=== PATIENT | male | born 1965 | race Caucasian/White ===

== ENCOUNTER 2025-07-05 09:23 | Inpatient (IN) | payer SELFPAY ==
--- OUTSIDE RECORDS SUMMARY | 2025-07-05 09:25 | XMS REPORT | Continuity of Care Document ---
Author Name Unknown Address [address] [facility] [address] [place] [address] Organization [facility] Address [address] [facility] [address] [place] [address] Care Team Providers Care Sales Center Associate Name Role Phone Pedro_Parmjit Attending Clinician Unavailable ISELA_Brooke Attending Clinician Unavailable Kamla Hall Attending Clinician [phone] ESTELLA Attending Clinician Unavailable Salma Barba Attending Clinician [phone] Keisha Admitting Clinician Unavailable ISELA_Brooke Admitting Clinician Unavailable ESTELLA Admitting Clinician Unavailable Payers Payer Name Policy Type Policy Number Effective Date Expirati on Date Source [facility] - LIMITED BENEFIT PLAN (PPO) [id number] [place] [id number] 2021 00:00:00 2022 00:00:00 [place]BS[place] - PREFERRED CARE BLUE (PPO) [id number] 2015 00:00:00 Problems Condition Name Condition Details Condition Category Status Onset Date Resolution Date Last Treatment Date Treating Clinician Comments Source Heavy drinker Heavy Drinker Problem Active 04-28 00:00: 00 [facility] Tobacco dependence caused by chewing tobacco Tobacco Dependence Caused by Chewing Tobacco Problem Active 04-28 00:00: 00 [facility] Pruritic rash Pruritic Rash Problem Active 2021-09 2-16 00:00: 00 [facility] Hyponatrem ia Hyponatrem ia Problem Active 2021-09 0- 00:00: 00 [facility] Liver enzymes outside reference range Liver Enzymes outside Reference Range Problem Active 2021-09 0- 00:00: 00 [facility] Discolorat ion of skin Discolorat ion of Skin Problem Active 06-28 00:00: 00 [facility] Liver enzymes level above reference range Liver Enzymes Level above Reference Range Problem Active 06-28 00:00: 00 [facility] Vitamin D deficiency Vitamin D Deficiency Problem Active 01-23 00:00: 00 [facility] Mixed hyperlipid emia Mixed Hyperlipid emia Problem Active 01-30 00:00: 00 [facility] Long-term drug therapy Long-term Drug Therapy Problem Active 01-30 00:00: 00 [facility] Hypertensi ve disorder Hypertensi ve Disorder Problem Active 12-20 00:00: 00 [facility] Allergies, Adverse Reactions, Alerts Allergy Name Allergy Type Status Severity Reaction(s) Onset Date Inactive Date Treating Clinician Comments Source Lisinopr il Allergy to substanc e Active Severe Angioedema [facility] Social History Smoking Status Start Date Stop Date Source Never Smoker [facility] Medications Ordered Medication Name Filled Medication Name Start Date Stop Date Current Medication? Ordering Clinician Indication Dosage Frequency Signature (SIG) Comments Components Source metoprolol tartrate 100 mg tablet Take 1 tablet twice a day by oral route for 90 days. Needs OV before next refill metoprolol tartrate 100 mg tablet Take 1 tablet twice a day by oral route for 90 days. Needs OV before next refill No 1 BID metoprolol tartrate 100 mg tablet Take 1 tablet twice a day by oral route for 90 days. Needs OV before next refill [facility] Immunizations Ordered Immunization Name Filled Immunization Name Date Status Comments Source COVID-19 (SARS-COV-2) vaccine, unspecified COVID-19 (SARS-COV-2) vaccine, unspecified Unknown Completed [facility] Vital Signs Vital Name Observation Time Observation Value Comments S ource Height 2024-04-28 00:00:00 66 [in_i] [facility] Body Weight 2024-04-28 00:00:00 2483.2 [oz_av] [facility] BMI (Body Mass Index) 2024-04-28 00:00:00 25 [facility]m2 [facility] BP Systolic 2024-04-28 00:00:00 142 mm[Hg] [facility] BP Diastolic 2024-04-28 00:00:00 94 mm[Hg] [facility] BP Systolic 2024-04-01 00:00:00 110 mm[Hg] [facility] Height 2024-04-01 00:00:00 66 [in_i] [facility] Body Weight 2024-04-01 00:00:00 2556.8 [oz_av] [facility] BP Diastolic 2024-04-01 00:00:00 80 mm[Hg] [facility] BMI (Body Mass Index) 2024-04-01 00:00:00 25.8 kg/m2 [facility] BP Diastolic 2023-08-05 00:00:00 100 mm[Hg] [facility] Height 2023-08-05 00:00:00 66 [in_i] [facility] BP Systolic 2023-08-05 00:00:00 155 mm[Hg] [facility] BMI (Body Mass Index) 2023-08-05 00:00:00 26 kg/m2 [facility] Body Weight 2023-08-05 00:00:00 2576 [oz_av] [facility] BP Diastolic 2022-06-28 00:00:00 95 mm[Hg] [facility] Height 2022-06-28 00:00:00 66 [in_i] [facility] BMI (Body Mass Index) 2022-06-28 00:00:00 26 kg/m2 [facility] BP Systolic 2022-06-28 00:00:00 145 mm[Hg] [facility] Body Weight 2022-06-28 00:00:00 2579.2 [oz_av] [facility] BP Diastolic 2021-11-22 00:00:00 90 mm[Hg[facility] 2021-11-22 00:00:00 66 [in_i] [facility] BMI (Body Mass Index) 2021-11-22 00:00:00 27.5 kg/m2 [facility] BP Systolic 2021-11-22 00:00:00 144 mm[Hg] [facility] Body Weight 2021-11-22 00:00:00 2723.2 [oz_av] [facility] BP Diastolic 2020-12-29 00:00:00 161 mm[Hg] [facility] Height 2020-12-29 00:00:00 66 [in_i] [facility] BMI (Body Mass Index) 2020-12-29 00:00:00 26 kg/m2 [facility] BP Systolic 2020-12-29 00:00:00 181 mm[Hg] [facility] Body Weight 2020-12-29 00:00:00 2579.2 [oz_av] [facility] Procedures Procedure Date / Time Performed Performing Clinicia n Source electrocardiogram, routine ECG, 12 leads min 2024-04-28 00:00:00 [facility] US, liver 2022-07-05 00:00:00 [facility] Unlisted Px Hands/fingers [facility] Encounters Start Date/Time End Date/Time Encounter Type Admission Type Attending Clinicians Care Facility Care Department Encounter ID Source 2024-04-28 00:00:00 2024-04-28 00:00:00 Joselin Parnell APRN, MSN, [facility]-: [address] [place] [address], [address] [address] , Ph[address] [facility] 0 [facility] 2024-04-01 00:00:00 2024-04-01 00:00:00 Joselin Parnell APRN, MSN, [facility]-BC: [address] [place] [address], [address] [place] [address] , Ph[address] [facility] [id number] [facility] 2023-08-05 00:00:00 2023-08-05 00:00:00 Joselin Parnell APRN, MSN, [facility]: [address] [facility], [address], [place] [address] , [address] [facility] [id number] [facility] 2022-07-05 00:00:00 2022-07-05 00:00:00 Joselin Parnell APRN, MSN, [facility]: [address] [facility], [address] [facility], [place] [address] , Ph[address] [facility] [id number] [facility] 2022-06-28 00:00:00 2022-06-28 00:00:00 Joselin Parnell APRN, MSN, [facility]: [address] [facility], [address], [place] [address] , [address] 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 [facility] [id number] [facility] 2021-10-05 00:00:00 2021-10-05 00:00:00 Kamla Hall APRN-FREELANCE PHOTOGRAPHER-C: [address] [place] [address], [address] [address] , Ph[address] [facility] [id number] [facility] 2021-10-05 00:00:00 2021-10-05 00:00:00 Outpatient Kamla Hall [facility] [id number] 2020-12-29 00:00:00 2020-12-29 00:00:00 Outpatient YaritzaSalma castle [facility] [id number] 2020-12-29 00:00:00 2020-12-29 00:00:00 Salma Archuleta Reyes k, [facility]-: [address] [place] [address], [address] [address] , Ph. [facility] [id number] [facility] Results Test Description Test Time Test Comments Results Result Co mments Source [facility] - Serum or [id number] 00:00:00* Test Item Value Reference Range Interpretation Comme nts Glucose [Mass/volume] in Serum or Plasma (test code = 2345-7) 87 mg/dL 70-99 Urea nitrogen [Mass/volume] in Serum or Plasma (test code = 3094-0) 4 mg/dL 6-24 L Creatinine [Mass/volume] in Serum or Plasma (test code = 2160-0) 0.76 mg/dL 0.76-1.27 eGFR (test code = eGFR) 104 mL/min/1.73 >59 Urea nitrogen/Creatinine [Mass Ratio] in Serum or Plasma (test code = 3097-3) 5 9-20 L Sodium [Moles/volume] in Serum or Plasma (test code = 2951-2) 128 mmol/L 134-144 L Potassium [Moles/volume] in Serum or Plasma (test code = 2823-3) 4.1 mmol/L 3.5-5.2 Chloride [Moles/volume] in Serum or Plasma (test code = 2074-0) 88 mmol/L 96-106 L Carbon dioxide, total [Moles/volume] in Serum or Plasma (test code = 2027-) 23 mmol/L 20-29 Calcium [Mass/volume] in Serum or Plasma (test code = 23832-5) 9.4 mg/dL 8.7-10.2 Protein [Mass/volume] in Serum or Plasma (test code = 2885-2) 7.4 g/dL 6.0-8.5 Albumin [Mass/volume] in Serum or Plasma (test code = 175-7) 4.4 g/dL 3.8-4.9 Globulin [Mass/volume] in Serum by calculation (test code = 10727-1) 3.0 g/dL 1.5-4.5 Albumin/Globulin [Mass Ratio ] in Serum or Plasma (test code = 1759-0) 1.5 1.2-2.2 Bilirubin.total [Mass/volume ] in Serum or Plasma (test code = 1974-) 0.6 mg/dL 0.0-1.2 Alkaline phosphatase [Enzymatic activity/volume] in Serum or Plasma (test code = 6768-6) 70 IU/L 44-121 Aspartate aminotransferase [Enzymatic activity/volume] in Serum or Plasma (test code = 192-8) 90 IU/L 0-40 H Alanine aminotransferase [Enzymatic activity/volume] in Serum or Plasma (test code = 1742-6) 82 IU/L 0-44 H [facility] 1996 panel - Serum or [id number] 00:00:00* Test Item Value Reference Range Interpretation Comme nts Cholesterol [Mass/volume] in Serum or Plasma (test code = 2093-3) 160 mg/dL 100-199 Triglyceride [Mass/volume] i n Serum or Plasma (test code = 2571-8) 60 mg/dL 0-149 Cholesterol in HDL [Mass/vol ume] in Serum or Plasma (test code = 2084-9) 73 mg/dL >39 Cholesterol in VLDL [Mass/vo lume] in Serum or Plasma by calculation (test code = 44512-5) 12 mg/dL 5-40 Cholesterol in LDL [Mass/vol ume] in Serum or Plasma by calculation (test code = 16437-2) 75 mg/dL 0-99 Laboratory comment [Text] in Report Narrative (test code = 34829-8) 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 Cholesterol in LDL/Cholester ol in HDL [Mass Ratio] in Serum or Plasma (test code = 60451-3) 1.0 ratio 0.0-3.6 [facility]/Hemoglobin.total in Blood 2022-06-29 00:00:00* Test Item Value Reference Range Interpretation Comme nts Hemoglobin A1c/Hemoglobin.to oseas in Blood (test code = 4548-4) 5.2 % 4.8-5.6 [facility] [Mass/volume] in Serum or Plasma 2022-06-29 00:00:00* Test Item Value Reference Range Interpretation Comme nts Testosterone [Mass/volume] i n Serum or Plasma (test code = 2986-8) 301 NG/dL 264-916 [facility] Center[facility]yroxine (T4) free [Mass/volume] in Serum or [id number] 00:00:00* Test Item Value Reference Range Interpretation Comme nts Thyroxine (T4) free [Mass/vo lume] in Serum or Plasma (test code = 3024-7) 1.27 NG/dL 0.82-1.77 [facility] CenterThyrotropin [Units/volume] in Serum or Plasma by Detection limit <= 0.005 mIU/[id number] 00:00:00* Test Item Value Reference Range Interpretation Comme nts Thyrotropin [Units/volume] i n Serum or Plasma by Detection limit <= 0.005 mIU/L (test code = 10241-6) 0.876 uIU/mL 0.450-4.500 [facility] [id number] D3+25-Hydroxyvitamin D2 [Mass/volume] in Serum or [id number] 00:00:00* Test Item Value Reference Range Interpretation Comme nts 25-Hydroxyvitamin D3+25-Hydroxyvitamin D2 [Mass/volume] in Serum or Plasma (test code = 92461-5) 44.1 NG/mL 30.0-100.0 [facility] strep group A, [id number] 14:47:00 * Test Item Value Reference Range Interpretation Comme nts Strep (test code = Strep) positive [facility] flu (A+B)2021-10-05 14:29:00* Test Item Value Reference Range Interpretation Comme nts FLU A (test code = FLU A) negative FLU B (test code = FLU B) negative [facility] Center[facility]ARS-CoV-2 (COVID-19) Ag [Presence] in Respiratory specimen by Rapid [id number] 14:29:00* Test Item Value Reference Range Interpretation Comme nts SARS CoV 2 (test code = SARS CoV 2) positive [facility]
[2025-07-05] MEDS ORDERED: ONDANSETRON 4 MG/2 ML VIAL ONE (09:29)
--- NOTE | 2025-07-05 10:03 | RAD REPORT ---
EXAM: CT brain without contrast HISTORY: Fall with head injury COMPARISON: None TECHNIQUE: Multiple contiguous axial images were obtained and a CT of the brain without contrast.. Sagittal and coronal reconstruction performed. Automated exposure control, adjustment of the mA and/or kV according to patient size, and/or iterative reconstruction. Unless otherwise specified, incidental f indings do not require dedicated imaging follow-up FINDINGS: Posterior scalp hematoma An intracranial bleed is not seen Ventricles are normal caliber No extra-axial fluid collection noted No significant hypodensity within the brain No fluid within the visualized sinuses or mastoids noted. IMPRESSION: No acute intracranial abnormality noted. If the patient continues to have symptoms to suggest an acute intracranial abnormality then MRI of th e brain would be recommended.
[2025-07-05 10:12] LABS: Absolute Lymphocytes (CBC) 1.0 K/uL (0.7-4.9); Hematocrit 43.5 % (39.6-49.0); Hemoglobin 14.9 g/dL (13.6-17.9); MCH 33.7 pg (27.0-35.0); MCHC 34.2 g/dL (32.0-36.0); MCV 98.7 fL (80-100); MPV 8.5 fL (7.6-11.3); Nucleated RBC Absolute Count 0.0 (0-0); Nucleated Red Blood Cells % 0.0 % (0-0); RBC Red Blood Cell Count 4.41 M/uL (4.33-5.43); White Blood Count 6.80 thou/uL (4.3-10.9)
[2025-07-05 10:23] LABS: PT Prothrombin Time 12.2 SECONDS (10-13.0); PTT, Activated Partial Thromb 29.6 SECONDS (27.2-37.4); Protime INR 1.08
[2025-07-05 10:44] LABS: ALT/SGPT 50.0 U/L (16-61); AST/SGOT 46.0 U/L (15-37); Albumin 3.4 g/dL (3.4-5.0); Albumin/Globulin Ratio 0.7 (1.1-1.8); Alkaline Phosphatase 86.0 U/L (45-117); Anion Gap 14.8 mEq/L (5.0-15.0); BUN Blood Urea Nitrogen 6.0 mg/dL (7-18); Bilirubin Indirect, Calculated 0.7 mg/dL (0.2-0.8); Globulin 4.8 g/dL (2.3-3.5); Glucose Level 140.0 mg/dL (74-106); Magnesium 2.0 mg/dL (1.6-2.4); Potassium 3.8 mEq/L (3.5-5.1); Troponin High Sensitivity 4.7 pg/mL (<58.9)
[2025-07-05] MEDS ORDERED: LABETALOL 20 MG/4ML SYRINGE IV ONE (11:17)
--- NOTE | 2025-07-05 11:40 | RAD REPORT ---
Procedure: Chest Single View HISTORY: Code stroke COMPARISON: none FINDINGS: The lungs appear clear of acute infiltrate. No significant pleural effusion noted. The heart is normal size. IMPRESSION: No acute abnormality is displayed.
--- NOTE | 2025-07-05 11:54 | ER ---
Nurse's Notes [facility] Name: Eduardo Woodard Age: 60 yrs Sex: Male : 1965 Arrival Date: 07/05/2025 Time: 09:23 Bed 6 Private MD: Diagnosis: Syncope, postconcussive syndrome, vomiting, ataxia, alcoholism Presentation: 07/05 09:37 Chief complaint: Patient states: Severe dizziness since 1400 yesterday, passed out and jl7 hit back of head, dizziness continues and pt report N/V. Note Code stroke called, ERD cancelled code stroke, staff notified. 09:37 Acuity: MARITO 2 mb9 09:37 Coronavirus screen: Vaccine status: Patient reports being unvaccinated. Ebola Screen: mb9 No symptoms or risks identified at this time. Initial Sepsis Screen: Does the patient meet any 2 criteria? No. Patient's initial sepsis screen is negative. Does the patient have a suspected source of infection? No. Patient's initial sepsis screen is negative. Risk Assessment: Do you want to hurt yourself or someone else? Patient reports no desire to harm self or others. Onset of symptoms was July 05, 2025. 09:37 Method Of Arrival: Wheelchair mb9 Historical: - Allergies: 11:46 No Known Allergies; mb9 - Home Meds: 09:48 Metoprolol Tartrate Oral [Active]; mb9 - PMHx: 09:48 Hypertensive disorder; mb9 - PSHx: 11:46 None; mb9 - Immunization history:: Adult Immunizations up to date. - Infectious Disease History:: Denies. - Social history:: Smoking status: Patient/guardian denies using tobacco. Screenin:47 [facility] ED Fall Risk Assessment (Adult) History of falling in the last 3 months, mb9 including since admission Yes- single mechanical fall (1 pt) Confusion or Disorientation No (0 pts) Intoxicated or Sedated No (0 pts) Impaired Gait Yes (1 pt) Mobility Assist Device Used No (0 pt) Altered Elimination No (0 pt) Score/Fall Risk Level 3 or more points = High Risk Oriented to surroundings, Maintained a safe environment, Educated pt \T\ family on fall prevention, incl call for assistance when getting out of bed, Assessed \T\ reinforced patient's understanding of fall precautions. Abuse screen: Denies threats or abuse. Nutritional screening: No deficits noted. Tuberculosis screening: No symptoms or risk factors identified. 12:35 Clinical [place] Withdrawal Assessment for Alcohol, revised (CIWA-Ar): mb9 Nausea/Vomitin - No nausea or vomiting Headache: 0 - Not present Paroxysmal Sweats: 0 - No sweats visible Anxiety: 0 - No anxiety, at ease Agitation: 0 - Normal actiivty Tremor: 4 - Moderate when client's hands extended Auditory Disturbances: 0 - Not present Visual Disturbances: 0 - Not present Tactile Disturbances: 0 - None Orientation and Clouding of Sensorium: 0 - Oriented and can do serial additions Total Score: < 10 Very mild withdrawal. 12:45 [place] Swallow Protocol Exclusion Criteria: Exclusion Criteria Result: Proceed Brief jl7 Cognitive Screen What is your name? Normal, Where are you right now? Normal, What year is it? Normal. Oral Mechanism Examination Facial Symmetry: Normal, Motion: Normal, Lip Closure: Normal, Oral Mechanism Result: Normal. 3 oz Water Swallow Challenge: Pt able to drink all water without stopping, coughing, choking or throat clearing: Yes Result: PASS. Assessment: 09:42 Reassessment: pt taken to CT on stretcher accompanied by nurse. mb9 09:45 General: Appears uncomfortable, Behavior is cooperative, anxious. Pain: Complains of mb9 pain in scalp Pain does not radiate. Pain currently is 10 out of 10 on a pain scale. Quality of pain is described as aching, Pain began suddenly, Is continuous. Neuro: [place] Agitation-Sedation Scale (RASS): 0 - Alert and Calm Level of Consciousness is awake, alert, obeys commands, Oriented to person, place, time, situation, Appropriate for age Entertainment Usher are equal bilaterally Full function Gait is unsteady, Speech is normal, Facial symmetry appears normal, Pupils are PERRLA, Intact Reports dizziness. Cardiovascular: Patient's skin is warm and dry. Respiratory: Airway is patent Respiratory effort is even, unlabored, Respiratory pattern is regular, symmetrical. GI: Reports nausea, vomiting. : No signs and/or symptoms were reported regarding the genitourinary system. EENT: No signs and/or symptoms were reported regarding the EENT system. Derm: laceration to posterior head. No active bleeding noted. Musculoskeletal: Range of motion: intact in all extremities. Injury Description: Laceration sustained to scalp. 11:14 Reassessment: Patient appears in no apparent distress at this time. Patient and/or mb9 family updated on plan of care and expected duration. Pain level reassessed. Patient is alert, oriented x 3, equal unlabored respirations, skin warm/dry/pink. Patient states feeling better. Patient states symptoms have improved. 12:05 Reassessment: This nurse went to D/C pt. Pt has tremors and unsteady on feet. Pt unable mb9 to ambulate. ERP notified and at bedside. Pt reports he is a heavy drinker and hasn't had alcohol in 2 days and could be explaining what is ging on. Vital Signs: 10:00 BP 185 / 107; Pulse 70; Resp 18; Pulse Ox 98% on R/A; jp5 10:02 BP 185 / 107; Pulse 71; Resp 18; Pulse Ox 100% ; Weight 74.84 kg; Height 5 ft. 8 in. ; mb9 Pain 8/10; 11:18 BP 181 / 115; Pulse 80; Resp 18; Pulse Ox 100% on R/A; mb9 11:46 BP 148 / 99; Pulse 89; Resp 16; Pulse Ox 100% on R/A; mb9 12:42 BP 142 / 109; Pulse 85; Resp 18; Pulse Ox 100% on R/A; mb9 10:02 Body Mass Index 25.09 (74.84 kg, 172.72 cm) mb9 10:02 Pain Scale: Adult mb9 ED Course: 09:24 Patient arrived in ED. mr 09:24 Arely Ramos MD is Attending Physician. sp3 09:35 Laura Yanez RN is Primary Nurse. mb9 09:39 Inserted saline lock: 18 gauge in right antecubital area, using aseptic technique. jp5 Blood collected. Flushed with 10 mL NS. 09:[address] via stretcher. jp5 09:41 Basic Metabolic Panel Sent. jp5 09:41 CBC with Diff Sent. jp5 09:41 Hepatic Function Sent. jp5 09:41 Magnesium Sent. jp5 09:41 Protime (+inr) Sent. jp5 09:41 Ptt, Activated Sent. jp5 09:41 Troponin High Sensitivity Sent. jp5 09:49 Placed in gown. Bed in low position. Call light in reach. Side rails up X 1. Provided mb9 Education on: press call light if needing anything. Client placed on continuous cardiac and pulse oximetry monitoring. NIBP monitoring applied. research geologist on. 09:50 Triage completed. mb9 09:52 Radiology exam delayed due to patient in CT. md2 09:54 CT Head Brain wo Cont In Process Unspecified. EDMS 10:03 No provider procedures requiring assistance completed. mb9 10:03 Arm band placed on. mb9 11:30 Chest Single View XRAY In Process Unspecified. EDMS 11:52 Anton Parr MD is Referral Physician. sp3 11:55 IV discontinued, intact, bleeding controlled, No redness/swelling at site. Pressure mb9 dressing applied. 12:21 Mathieu Saab is Hospitalizing Provider. sp3 12:52 Inserted saline lock: 20 gauge in right forearm, using aseptic technique. Flushed with mb9 10 mL NS. Administered Medications: 09:40 Drug: Ondansetron IVP 4 mg IVP once; over 2 minutes Route: IVP; Site: right antecubital;jp5 11:14 Follow up: Response: No adverse reaction mb9 11:21 Drug: Labetalol IV 20 mg IV at calculated rate once over 2 mins Route: IV; Rate: mb9 calculated rate; Infused Over: 2 mins; Site: right antecubital; 11:55 Follow up: Response: No adverse reaction; IV Status: Completed infusion mb9 12:52 Drug: Thiamine IV 100 mg IV at calculated rate once Route: IV; Rate: calculated rate; mb9 Site: right forearm; 14:49 Follow up: Response: No adverse reaction; IV Status: Completed infusion mb9 12:53 Drug: foLIC Acid PO 1 mg PO once Route: PO; mb9 14:49 Follow up: Response: No adverse reaction mb9 Medication: 10:03 VIS not applicable for this client. mb9 Outcome: 11:54 Discharge ordered by . sp3 11:57 Discharged to home via wheelchair, with family, mb9 11:57 Condition: stable 11:57 Discharge instructions given to patient, family, Instructed on discharge instructions, follow up and referral plans. Demonstrated understanding of instructions, follow-up care, medications, Prescriptions given X 1, 12:23 Decision to Hospitalize by Provider. sp3 14:48 Patient left the ED. mb9 Signatures: Dispatcher MedHo KIN Feliciano, [facility], Reg Reg mr Sunny, Srini, RN RN jl7 Arely Ramos MD MD sp3 Julianne García md2 Laura Yanez, RN RN mb9 Rossi Parnell RN RN jp5
--- NOTE | 2025-07-05 11:54 | EDPHYS ---
Physician Documentation [facility] Name: Eduardo Woodard Age: 60 yrs Sex: Male : 1965 Arrival Date: 07/05/2025 Time: 09:23 Bed 6 Private MD: ED Physician Arely Ramos HPI: 07/05 09:46 This 60 yrs old Male presents to ER via Unassigned with complaints of Fall Injury, sp3 Passed Out Prior To Arrival. 09:47 60-year-old male with history of hypertension presents via personal vehicle sent from 3 his primary nurse practitioner's office for chief complaint headache, syncope and vomiting. Patient and family states that he has had several episodes of syncope over the last few weeks with 1 yesterday where he had a full blackout while standing and felt hitting the back of his head. Subsequent to that he has had vomiting off and on since yesterday. Patient also complains of headache. He denies any neck pain, other pain on the body including chest, back, abdomen, extremities. He also denies any diarrhea, fever, medical prodrome prior to the syncope (he said it happens randomly), or similar symptoms in the past. No travel history or known sick contacts. ROS otherwise negative.. Historical: - Allergies: 11:46 No Known Allergies; mb9 - Home Meds: 09:48 Metoprolol Tartrate Oral [Active]; mb9 - PMHx: 09:48 Hypertensive disorder; mb9 - PSHx: 11:46 None; mb9 - Immunization history:: Adult Immunizations up to date. - Infectious Disease History:: Denies. - Social history:: Smoking status: Patient/guardian denies using tobacco. ROS: 09:48 Constitutional: Negative for fever, chills, and weight loss, Eyes: Negative for injury, sp3 pain, redness, and discharge, ENT: Negative for injury, pain, and discharge, Neck: Negative for injury, pain, and swelling, Cardiovascular: Negative for chest pain, palpitations, and edema, Respiratory: Negative for shortness of breath, cough, wheezing, and pleuritic chest pain, Back: Negative for injury and pain, MS/Extremity: Negative for injury and deformity, Skin: Negative for injury, rash, and discoloration, Psych: Negative for depression, anxiety, suicide ideation, homicidal ideation, and hallucinations, Allergy/Immunology: Negative for hives, rash, and allergies, Endocrine: Negative for neck swelling, polydipsia, polyuria, polyphagia, and marked weight changes, Hematologic/Lymphatic: Negative for swollen nodes, abnormal bleeding, and unusual bruising, 09:48 All other systems are negative, Exam: 09:49 Constitutional: This is a well developed, well nourished patient who is awake, alert, sp3 and in no acute distress. Eyes: Pupils equal round and reactive to light, extra-ocular motions intact. Lids and lashes normal. Conjunctiva and sclera are non-icteric and not injected. Cornea within normal limits. Periorbital areas with no swelling, redness, or edema. ENT: Nares patent. No nasal discharge, no septal abnormalities noted. External auditory canals are clear. Oropharynx with no redness, swelling, or masses, exudates, or evidence of obstruction, uvula midline. Mucous membranes moist. Neck: Trachea midline, no thyromegaly or masses palpated, and no cervical lymphadenopathy. Supple, full range of motion without nuchal rigidity, or vertebral point tenderness. No Meningismus. Chest/axilla: Normal chest wall appearance and motion. Nontender with no deformity. No lesions are appreciated. Cardiovascular: Regular rate and rhythm with a normal S1 and S2. No gallops, murmurs, or rubs. Normal PMI, no JVD. No pulse deficits. Respiratory: Lungs have equal breath sounds bilaterally, clear to auscultation and percussion. No rales, rhonchi or wheezes noted. No increased work of breathing, no retractions or nasal flaring. Back: No spinal tenderness. No costovertebral tenderness. Full range of motion. Skin: Warm, dry with normal turgor. Normal color with no rashes, no lesions, and no evidence of cellulitis. MS/ Extremity: Pulses equal, no cyanosis. Neurovascular intact. Full, normal range of motion. Psych: Awake, alert, with orientation to person, place and time. Behavior, mood, and affect are within normal limits. 09:49 Head/face: Posterior occiput hematoma noted without significant laceration. 09:49 Abdomen/GI: Active emesis but soft abdomen, 09:49 Neuro: Neurologically no focal deficits. Patient is vertiginous with motion triggering worsening symptoms., 10:27 ECG was reviewed by the Attending Physician. EKG demonstrates normal sinus rhythm at 70 sp3 bpm with extended QTc at 495, normal QRS, normal axis nonspecific diffuse ST/T changes without evidence of acute ischemia. Vital Signs: 10:00 BP 185 / 107; Pulse 70; Resp 18; Pulse Ox 98% on R/A; jp5 10:02 BP 185 / 107; Pulse 71; Resp 18; Pulse Ox 100% ; Weight 74.84 kg; Height 5 ft. 8 in. ; mb9 Pain 8/10; 11:18 BP 181 / 115; Pulse 80; Resp 18; Pulse Ox 100% on R/A; mb9 11:46 BP 148 / 99; Pulse 89; Resp 16; Pulse Ox 100% on R/A; mb9 12:42 BP 142 / 109; Pulse 85; Resp 18; Pulse Ox 100% on R/A; mb9 10:02 Body Mass Index 25.09 (74.84 kg, 172.72 cm) mb9 10:02 Pain Scale: Adult mb9 MDM: 09:31 Medical Screening Exam initiated sp3 09:50 Data reviewed: vital signs, nurses notes, old medical records, lab test result(s), EKG, sp3 radiologic studies. ED course: 60-year-old male with headache, vomiting and vertigo subsequent to syncope and fall. Differential diagnosis is broad and includes intracranial hemorrhage secondary to the fall, other primary intracranial process, TIA/CVA, cardiac arrhythmia, acute coronary syndrome, dehydration electrolyte disturbance,, among others. Workup will be broad and include CT scan of the head, EKG, chest x-ray, general labs and supportive care. Consider meclizine for vertigo as a diagnosis of exclusion and treatment process. Patient will likely be admitted to the hospital for observation at minimum pending workup completion.. 11:51 ED course: Patient much improved and completely back to baseline. All symptoms sp3 resolved. Blood pressure was still high which resolved after labetalol 1 dose. Patient did miss his morning blood pressure medications. Full workup otherwise negative as well. I have advised patient to follow-up with cardiology and return here if further symptoms return. I have also advised him to walk with a walker or cane and preferably with a family member at side. Family and patient acknowledged and state that they will proceed as discussed.. 12:05 ED course: Upon standing up patient's symptoms returned and he was very unsteady on his sp3 feet. At this point we will go ahead and admit him and have cardiology see him here as well as PT OT as needed. Consider neurology as well.. 12:17 ED course: Upon further history from family, patient endorses alcoholism. Consider sp3 Korsakoff and/or other process and/or withdrawal process as part of the symptoms. Have advised inpatient team on this moore piece of clinical data.. 07/05 09:32 Order name: Basic Metabolic Panel; Complete Time: 10:47 sp3 07/05 09:32 Order name: CBC with Diff; Complete Time: 10:47 sp3 07/05 09:32 Order name: Hepatic Function; Complete Time: 10:47 sp3 07/05 09:32 Order name: Magnesium; Complete Time: 10:47 sp3 07/05 09:32 Order name: Protime (+inr); Complete Time: 10:47 sp3 07/05 09:32 Order name: Ptt, Activated; Complete Time: 10:47 sp3 07/05 09:32 Order name: Troponin High Sensitivity; Complete Time: 10:47 sp3 07/05 12:44 Order name: CBC with Automated Diff EDMS 07/05 12:44 Order name: CBC with Automated Diff EDMS 07/05 12:44 Order name: CBC with Automated Diff EDMS 07/05 12:44 Order name: CBC with Automated Diff EDMS 07/05 12:44 Order name: CBC with Automated Diff EDMS 07/05 12:44 Order name: Comprehensive Metabolic Panel EDMS 07/05 12:44 Order name: Comprehensive Metabolic Panel EDMS 07/05 12:44 Order name: Comprehensive Metabolic Panel EDMS 07/05 12:44 Order name: Comprehensive Metabolic Panel EDMS 07/05 12:44 Order name: Comprehensive Metabolic Panel EDMS 07/05 12:44 Order name: Magnesium EDMS 07/05 12:44 Order name: Magnesium EDMS 07/05 12:44 Order name: Magnesium EDMS 07/05 12:44 Order name: Magnesium EDMS 07/05 12:44 Order name: Magnesium EDMS 07/05 12:44 Order name: Phosphorus EDMS 07/05 12:44 Order name: Phosphorus EDMS 07/05 12:44 Order name: Phosphorus EDMS 07/05 12:44 Order name: Phosphorus EDMS 07/05 12:44 Order name: Phosphorus EDMS 07/05 12:44 Order name: T4 Free EDMS 07/05 12:44 Order name: T4 Free EDMS 07/05 12:44 Order name: Thyroid Stimulating Hormone EDMS 07/05 12:44 Order name: Thyroid Stimulating Hormone EDMS 07/05 12:44 Order name: Troponin High Sensitivity EDMS 07/05 12:44 Order name: Troponin High Sensitivity EDMS 07/05 12:44 Order name: Troponin High Sensitivity EDMS 07/05 09:32 Order name: CT Head Brain wo Cont; Complete Time: 10:47 sp3 07/05 09:32 Order name: Chest Single View XRAY; Complete Time: 11:42 sp3 07/05 12:44 Order name: Echo with Doppler EDMS 07/05 12:44 Order name: Brain W/Wo Cont EDMS 07/05 09:32 Order name: Cardiac monitoring; Complete Time: 10:02 sp3 07/05 09:32 Order name: EKG - Nurse/Tech; Complete Time: 10:02 sp3 07/05 09:32 Order name: IV Saline Lock; Complete Time: 09:41 sp3 07/05 09:32 Order name: Labs collected and sent; Complete Time: 09:41 sp3 07/05 09:32 Order name: NPO; Complete Time: 09:48 sp3 07/05 09:32 Order name: O2 Per Protocol; Complete Time: 09:48 sp3 07/05 09:32 Order name: O2 Sat Monitoring; Complete Time: 09:48 sp3 Administered Medications: 09:40 Drug: Ondansetron IVP 4 mg IVP once; over 2 minutes Route: IVP; Site: right antecubital;jp5 11:14 Follow up: Response: No adverse reaction mb9 11:21 Drug: Labetalol IV 20 mg IV at calculated rate once over 2 mins Route: IV; Rate: mb9 calculated rate; Infused Over: 2 mins; Site: right antecubital; 11:55 Follow up: Response: No adverse reaction; IV Status: Completed infusion mb9 12:52 Drug: Thiamine IV 100 mg IV at calculated rate once Route: IV; Rate: calculated rate; mb9 Site: right forearm; 14:49 Follow up: Response: No adverse reaction; IV Status: Completed infusion mb9 12:53 Drug: foLIC Acid PO 1 mg PO once Route: PO; mb9 14:49 Follow up: Response: No adverse reaction mb9 Disposition Summary: 07/05/25 12:23 Hospitalization Ordered Notes: Hospitalization Status: Inpatient Admission sp3 Provider: Mathieu Saab sp3 Location: Telemetry/MedSurg (Inpatient)(07/05/25 12:23) sp3 Condition: Stable(07/05/25 12:23) sp3 Problem: new sp3 Symptoms: have worsened sp3 Bed/Room Type: Standard sp3 Room Assignment: 425(07/05/25 13:50) bd Diagnosis - Syncope, postconcussive syndrome, vomiting, ataxia, alcoholism sp3 Forms: - Medication Reconciliation Form sp3 - SBAR form sp3 - Leadership Thank You Letter sp3 Signatures: Dispatcher [employer] EDMS Di Marroquin Lee, NEUROLOGICAL SURGEON-C NEUROLOGICAL SURGEON-Cla1 Arely Ramos MD MD sp3 Laura Yanez RN RN mb9 Rossi Parnell RN RN jp5 Corrections: (The following items were deleted from the chart) 10:02 09:32 Orthostatics ordered. sp3 mb9 11:54 11:54 Syncope Near sp3 sp3 12:05 11:54 Home sp3 sp3 12:05 11:54 Stable sp3 sp3 12:05 11:54 Postconcussive syndrome, vomiting sp3 sp3 13:50 12:23 sp3 bd
[2025-07-05] MEDS ORDERED: LORazepam 2 MG/ML VIAL IV PRN (12:38)
[2025-07-05] MEDS ORDERED: ACETAMINOPHEN 325 MG TABLET PO PRN (12:38)
[2025-07-05] MEDS ORDERED: ONDANSETRON 4 MG/2 ML VIAL IV PRN (12:38)
[2025-07-05] MEDS ORDERED: THIAMINE 200 MG/2 ML INJ ONE (12:43)
[2025-07-05] MEDS ORDERED: FOLIC ACID 1 MG TABLET ONE (12:44)
--- NOTE | 2025-07-05 15:39 | P.HP ---
Certification for Inpatient Patient admitted to: Inpatient With expected LOS: >2 Midnights Patient will require the following post-hospital care: None Practitioner: I am a practitioner with admitting privileges, knowledge of patient current condition, hospital course, and medical plan of care. Services: Services provided to patient in accordance with Admission requirements found in Title 42 Section 412.3 of the Code of Federal Regulations Patient History Date of Service: 07/05/25 Reason for admission: Ataxia History of Present Illness: 60-year-old male with history of hypertension, neuropathy presents the emergency department with chief complaint of nausea/vomiting, unsteady gait. He had a syncopal episode yesterday while he was outside and fell hitting the back of his head. Since he fell and hit his head he has been having a very unsteady gait and persistent vomiting. Patient was evaluated in the emergency department CT head without contrast was negative for any acute findings his labs are significant for sodium of 131 chloride 95 AST 46. Patient reports 1 other syncopal episode a few weeks ago. He denies any chest pain, shortness of breath or other symptoms prior to syncopal episodes. Both episodes happened while standing. Patient does admit to being a heavy drinker, he drinks anywhere from 12-24 beers daily. Patient with unsteady gait, unable to ambulate without assistance will be admitted for further evaluation and management. Allergies codeine Adverse Reaction (Verified 07/05/25 15:06) Hives/Rash lisinopril Adverse Reaction (Verified 07/05/25 15:06) Hives/Rash Home Medications: Metoprolol Tartrate 100 mg PO BID 6AM 6PM 07/05/25 - Past Medical/Surgical History -: Hypertension -: Alcohol use disorder -: Neuropathy - Social History Alcohol use: Yes CD- Drugs: No Caffeine use: Yes Place of Residence: Home Review of Systems 10-point ROS is otherwise unremarkable Neurological: Incoordination, Other (Unsteady gait) Physical Examination - Vital Signs Blood Pressure: 142/109 Pulse: 85 Respirations: 18 - Physical Exam General: Alert, In no apparent distress, Oriented x3 HEENT: Atraumatic, PERRLA, EOMI Neck: Supple, 2+ carotid pulse no bruit, No LAD Respiratory: Clear to auscultation bilaterally, Normal air movement Cardiovascular: Regular rate/rhythm, Normal S1 S2 Gastrointestinal: Normal bowel sounds, No tenderness Musculoskeletal: No tenderness Integumentary: No rashes Neurological: Normal speech, Normal strength at 5/5 x4 extr, Normal affect, Abnormal gait - Studies Laboratory Data (last 24 hrs) 07/05/25 07/05/25 07/05/25 09:37 09:37 09:37 WBC 6.80 Hgb 14.9 Hct 43.5 Plt Count 129 L PT 12.2 INR 1.08 APTT 29.6 Sodium 131 L Potassium 3.8 BUN 6 L Creatinine 1.04 Glucose 140 H Magnesium 2.0 Total Bilirubin 1.0 AST 46 H ALT 50 Alkaline Phosphatase 86 Assessment and Plan - Plan Assessment: Ataxia Postconcussive syndrome Syncope Mild hyponatremia Hypertension Alcohol use disorder Plan: Ataxia Postconcussive syndrome PT consultation MRI brain with/without CT head was negative for acute findings Syncope Trend troponins, monitor on telemetry Echocardiogram ordered Cardiology consulted Mild hyponatremia Gentle IV fluids Hypertension Continue home medication Alcohol use disorder Drinks 12-24 beers daily Counseled on need for cessation Monitor for alcohol withdrawals As needed benzos DVT PPX: Lovenox Code status: Full code Discharge Plan: Home Plan to discharge in: 48 Hours - Advance Directives Does patient have a Living Will: No Does patient have a Durable POA for Healthcare: No - Code Status/Comfort Care Code Status Assessed: Yes (Full code) Critical Care: No Time Spent Managing Pts Care (In Minutes): 70
--- NOTE | 2025-07-05 15:59 | RAD REPORT ---
EXAMINATION: Brain W/Wo Cont CLINICAL INDICATION: Male, 60 years old. ataxia TECHNIQUE: Multiplanar multisequence MR images of the brain were obtained with and without intravenou s contrast. Unless otherwise specified, incidental findings do not require dedicated imaging follow-up. [id number]. COMPARISON: Head CT 07/05/2025 FINDINGS: INTRACRANIAL: Punctate cortical infarct at the right parietal region. See image 60, series 5. No sign ificant mass effect or midline shift.No hydrocephalus. Mild chronic small vessel ischemic changes.Mild cerebral atrophy. No abnormal enhancement. VASCULATURE: Normal signal voids in the larger intracranial arteries and dural venous sinuses. SINUSES: The paranasal sinuses are predominantly clear.No mastoid effusions. BONE: The marrow signal pattern is within normal limits. IMPRESSION: Single punctate right parietal region cortical infarct. Mild chronic small vessel ischemic changes. N o abnormal enhancement.
[2025-07-05] MEDS: FLU (Fluarix) 25-26 (6MOS UP)/PF 45 MCG/0.5 ML Syringe IM ONE (16:45)
[2025-07-05] MEDS: ATORVASTATIN 40 MG TAB PO SCH (21:49)
[2025-07-06 05:49] LABS: Absolute Lymphocytes (CBC) 1.2 K/uL (0.7-4.9); Hematocrit 39.9 % (39.6-49.0); Hemoglobin 13.7 g/dL (13.6-17.9); MCH 33.5 pg (27.0-35.0); MCHC 34.3 g/dL (32.0-36.0); MCV 97.5 fL (80-100); MPV 7.9 fL (7.6-11.3); Nucleated RBC Absolute Count 0.0 (0-0); Nucleated Red Blood Cells % 0.0 % (0-0); RBC Red Blood Cell Count 4.09 M/uL (4.33-5.43); White Blood Count 6.20 thou/uL (4.3-10.9)
[2025-07-06 06:14] LABS: ALT/SGPT 37.0 U/L (16-61); AST/SGOT 26.0 U/L (15-37); Albumin 3.1 g/dL (3.4-5.0); Albumin/Globulin Ratio 0.8 (1.1-1.8); Alkaline Phosphatase 70.0 U/L (45-117); Anion Gap 11.1 mEq/L (5.0-15.0); BUN Blood Urea Nitrogen 6.0 mg/dL (7-18); Globulin 4.1 g/dL (2.3-3.5); Glucose Level 117.0 mg/dL (74-106); Magnesium 1.7 mg/dL (1.6-2.4); Potassium 3.1 mEq/L (3.5-5.1); Troponin High Sensitivity 6.0 pg/mL (<58.9)
[2025-07-06 06:15] LABS: Thyroid Stimulating Hormone 2.02 uIU/mL (0.358-3.740)
[2025-07-06] MEDS: ASPIRIN EC 81 MG TAB PO SCH (08:58)
[2025-07-06] MEDS: THIAMINE HCL 100 MG TABLET PO SCH (08:58)
[2025-07-06] MEDS: ENOXAPARIN 40 MG/0.4 ML SQ SCH (08:58)
[2025-07-06] MEDS: CLOPIDOGREL 75 MG TABLET PO SCH (08:58)
[2025-07-06] MEDS: POTASSIUM CL SA 10 MEQ TAB PO ONE (08:58)
[2025-07-06] MEDS: FOLIC ACID 1 MG TABLET PO SCH (08:58)
--- NOTE | 2025-07-06 11:51 | P.CNS ---
Date of Consult: 07/06/25 Chief Complaint: Ataxia History of Present Illness: Patiet with PMH of HTN, presented with ground level fall, report syncope, can not recall any symptoms prior to passing out, except he was looking up then passed out, denies chest pain, no palpitations, no breathing problems. Allergies codeine Adverse Reaction (Verified 07/05/25 15:06) Hives/Rash lisinopril Adverse Reaction (Verified 07/05/25 15:06) Hives/Rash Home medications list reviewed: Yes Home Medications: Metoprolol Tartrate 100 mg PO BID 6AM 6PM 07/05/25 - Past Medical/Surgical History Diabetic: No -: Hypertension -: Alcohol use disorder -: Neuropathy - Social History Alcohol use: Yes CD- Drugs: No Caffeine use: Yes Place of Residence: Home Review of Systems 10-point ROS is otherwise unremarkable Physical Examination Temp Pulse Resp BP Pulse Ox 98.4 F 96 H 16 137/90 97 07/06/25 08:00 07/06/25 08:00 07/06/25 08:00 07/06/25 08:00 07/06/25 08:00 General: Alert, In no apparent distress HEENT: Atraumatic, PERRLA, Mucous membr. moist/pink, EOMI, Sclerae nonicteric Neck: Supple, 2+ carotid pulse no bruit, No LAD, Without JVD or thyroid abnormality Respiratory: Clear to auscultation bilaterally, Normal air movement Cardiovascular: Regular rate/rhythm, Normal S1 S2 Gastrointestinal: Normal bowel sounds, No tenderness Musculoskeletal: No tenderness Integumentary: No rashes Neurological: Normal gait, Normal speech, Normal tone, Normal affect Lymphatics: No axilla or inguinal lymphadenopathy - Problems (1) HTN (hypertension) Current Visit: Yes Status: Acute Plan: resume Lopressor at 50 mg po BID Continue to monitor (2) Stroke Current Visit: Yes Status: Acute Plan: per neurology team continue ASA and Plavix outpatient follow up with cardiology for possible event monitor (3) Syncope Current Visit: Yes Status: Acute Plan: unclear etiology continue to monitor on tele, it shown sinus rhythm so far troponin negative x3 follow up on echo
--- NOTE | 2025-07-06 12:25 | P.PN ---
Date of Service: 07/06/25 Subjective: feeling better worked with PT today states getting up to bathroom ok loose stool started this morning Physical Exam: Gen: Alert, Oriented, NAD CV: Regular rate and rhythm, no edema Pulm: Nonlabored respirations on room air, clear bilaterally Abdomen: Soft, nontender, nondistended Neuro: Normal strength, normal affect Problem List: Acute punctate right parietal cortical CVA Ataxia Syncope Hyponatremia Hypokalemia Alcohol use disorder Hypertension Acute punctate right parietal cortical CVA Ataxia MRI brain (07/05): single punctate right parietal region cortical infarct. Mild chronic small vessel ischemic changes. asa 81mg, statin, plavix Continue thiamine, folic acid Neuro consult PT eval Syncope Troponins negative x3. Monitor on telemetry Cardiology consulted. recommends outpatient f/u for possible event monitor Echo done pending report Hyponatremia Hypokalemia Monitor and replete electrolytes as needed Alcohol use disorder Significant alcohol use. Drinks 12-24 beers daily Cessation advised. Monitor for alcohol withdrawals LFTs okay PRN ativan Hypertension confirm home meds, restart as appropriate VTE: Lovenox Code: Full Dispo: Home
[2025-07-06 15:40] VITALS: BMI 25.0
--- NOTE | 2025-07-06 16:51 | RAD REPORT ---
EXAMINATION: MRI CERVICAL SPINE WITHOUT CONTRAST CLINICAL INDICATION: Male, 60 years old. r/o cervical spinal stenosis TECHNIQUE: Multiplanar multisequence MR images were obtained of the cervical spine without intravenou s contrast. Unless otherwise specified, incidental findings do not require dedicated imaging follow-up. [id number]. COMPARISON: No prior exam. FINDINGS: ALIGNMENT: Trace anterolisthesis of C4 on C5. Trace retrolisthesis of C5 on C6 and 2 mm of retrolisth esis of C6 on C7. BONE: Mild degenerative endplate edema is present at the C5-6 and C6-7 levels. CORD: The cervical spinal cord is normal in size, contour and signal intensity. BRAIN: The included intracranial structures are grossly normal. The craniocervical junction is normal . SOFT TISSUE: The paraspinal soft tissues are normal. EVALUATION OF THE INDIVIDUAL LEVELS: C2-C3: Uncovertebral joint hypertrophy contributes to at least mild bilateral neural foraminal narrow ing. No central spinal stenosis. C3-C4: Posterior disc osteophyte complex and uncovertebral joint hypertrophy results in likely modera te left and [id number] right neural foraminal narrowing. No significant central spinal stenosis. C4-C5: Posterior disc osteophyte complex and uncovertebral joint hypertrophy results in moderate bila teral neural foraminal narrowing. No significant central spinal stenosis. C5-C6: Posterior disc osteophyte complex and uncovertebral joint hypertrophy results in moderate righ t and [id number] left neural foraminal narrowing. No clinically significant central spinal stenosis. C6-C7: Posterior disc osteophyte complex and uncovertebral joint hypertrophy results in mild central spinal stenosis and moderate bilateral neural foraminal narrowing. C7-T1: Disc is normal in height and signal intensity. No significant spinal canal or neural foraminal stenosis. IMPRESSION: Mild central spinal stenosis at the C6-7 level which is probably not clinically significant. Neural f oraminal narrowing noted bilaterally. No abnormal cord signal.
--- NOTE | 2025-07-06 22:04 | CON ---
Reason For Consultation: Consultation called because of ataxic gait. History Of Present Illness: Mr. Woodard is a 60-year-old patient with hypertension; very heavy alco hol use for over 40 years, 12-24 beers daily for many years and he presented to the emergency room wi th nausea, vomiting, and worsening gait. He did have also had a syncopal episode while outside. He fell hitting the back of his head. He says the fall he has had, had some head pain and worsening hea dache with vomiting. His noticed that he has worsening gait, which is wide-based with a tendenc y to fall, progressive over the [address] scan of the head was negative for acute ischemic hemorr hagic change. A brain MRI done yesterday identified a small punctate acute stroke in the right parie oseas region and mild small vessel ischemic disease. No mention of cerebellar findings, posterior oneyda a findings such as brainstem issues. His clinical examination also showed significant hyperreflexia with crossed adductors and spreading lower extremities and cervical spine was lower. However, cervic al spine, only showed mild cervical canal stenosis, not explaining the patient's hyperreflexia. In a ddition, he has small punctate stroke on 1 side, did not explain his hyperreflexia as well. Past Medical History: As noted above. Allergies: CODEINE, LISINOPRIL. Medications At Home: Metoprolol. Social History: Heavy alcohol use. Denies recent tobacco use. No IV drug use. Family History: Noncontributory. Review of Systems: Unsteady gait with tendency to fall and vertigo with dizziness symptoms since bumping the back of his head and again longstanding heavy alcohol use. Denies alcohol related blackouts or alcoholic seizur es, or delirium tremens symptoms. Physical Examination: Vital Signs: Blood pressure is 153/93, pulse of 102, respiratory rate of 16, temperature 98.4, oxyge n saturation 100% on room air. General: Mr. Woodard is resting in bed. HEENT: He appears normocephalic. Slightly poor dentition. Otherwise, normocephalic, atraumatic. S clerae anicteric. Oropharynx pink and moist. Neck: Supple. Chest: Clear. Heart: Regular. No significant edema, cyanosis, or clubbing. Neurological: He is alert, oriented to person, place, and situation. Follows commands appropriately . Cranial nerves show focal deficits on 2 through 12. Motor examination, he has good str ength in the upper and lower extremities. With his reflexes, he has 4+ in the patellae and 2 at the heels, crossed adductors present, and spread present. Sensations exam, he has a mild stocking-glove loss to light touch and temperature, but he has good position sense in terms of his toes up, down, le ft, right. He is able to accurately pinpoint those. Coordination is mildly ataxic with dysmetria in the upper and lower extremities. Ataxic gait, wide-based. Laboratory Studies: Complete blood count differential is unremarkable. Coagulation panel, INR 1.08. Sodium was low at 130, potassium 3.1, BUN of 6, glucose 117, calcium 9.1. Phosphorus 4.0. AST 26, ALT 37, LDL of 72. TSH 2.02, free T4 of 1.28. Liver function studies are unremarkable despite hist ory of alcohol consumption. Assessment And Plan: Mr. Woodard is a 60-year-old patient with ataxic gait. He has hyperreflexic l ower extremities. He does not have significant cervical canal stenosis. Small punctate stroke in t he right parietal region, that does not explain his ataxic gait. Other consideration should be perha ps findings of central pontine myelinolysis, although the MRI does not necessarily evaluate that, may be MRI with contrast potentially may be helpful. The presence of increased reflexes may also represe nt an upper motor neuron finding, but anatomically it is unclear explanation. He does not have signi ficant loss of nerve function in the lower extremities to explain his gait by a sensory loss. The roscoe yessy may benefit from aggressive physical therapy to help him recover. In addition, he should stop drinking alcohol. He should be on thiamine 100 mg daily, folic acid 1 mg daily, multivitamin daily. He may follow up with his primary care physician for management of his comorbid conditions and patie nt may be discharged again, but outpatient physical therapy may be helpful in improving his balance, coordinati on, and gait. LB/MODL Voice ID: [id number] Report ID: [id number]
[2025-07-07 06:07] LABS: Absolute Lymphocytes (CBC) 0.8 K/uL (0.7-4.9); Hematocrit 36.6 % (39.6-49.0); Hemoglobin 12.9 g/dL (13.6-17.9); MCH 33.9 pg (27.0-35.0); MCHC 35.3 g/dL (32.0-36.0); MCV 96.1 fL (80-100); MPV 7.8 fL (7.6-11.3); Nucleated RBC Absolute Count 0.0 (0-0); Nucleated Red Blood Cells % 0.1 % (0-0); RBC Red Blood Cell Count 3.81 M/uL (4.33-5.43); White Blood Count 4.90 thou/uL (4.3-10.9)
[2025-07-07 06:22] LABS: ALT/SGPT 29.0 U/L (16-61); AST/SGOT 24.0 U/L (15-37); Albumin 2.9 g/dL (3.4-5.0); Albumin/Globulin Ratio 0.7 (1.1-1.8); Alkaline Phosphatase 64.0 U/L (45-117); Anion Gap 7.1 mEq/L (5.0-15.0); BUN Blood Urea Nitrogen 5.0 mg/dL (7-18); Globulin 4.0 g/dL (2.3-3.5); Glucose Level 104.0 mg/dL (74-106); Magnesium 1.6 mg/dL (1.6-2.4); Potassium 3.1 mEq/L (3.5-5.1)
[2025-07-07] MEDS: NA CHLORIDE 0.9% 1,000 ML IV SCH (08:50)
[2025-07-07] MEDS: POTASSIUM CL SA 10 MEQ TAB PO ONE (08:53)
[2025-07-07] MEDS: Magnesium Sulfate 2gm IVPB 2 G/50 ML BAG IV ONE (08:55)
--- NOTE | 2025-07-07 10:28 | P.PN ---
Subjective Date of Service: 07/07/25 Chief Complaint: Ataxia Subjective: No new changes, No C/O voiced, Tolerating diet, Ambulating, Improving Review of Systems 10-point ROS is otherwise unremarkable Physical Examination - Vital Signs Temperature: 98.4 F Blood Pressure: 144/97 Pulse: 93 Respirations: 18 Pulse Ox (%): 95 - Physical Exam General: Alert, In no apparent distress HEENT: Atraumatic, PERRLA, EOMI Neck: Supple, JVD not distended Respiratory: Clear to auscultation bilaterally, Normal air movement Cardiovascular: Regular rate/rhythm, Normal S1 S2 Gastrointestinal: Normal bowel sounds, No tenderness Musculoskeletal: No tenderness Integumentary: No rashes Neurological: Normal speech, Normal tone, Normal affect Lymphatics: No axilla or inguinal lymphadenopathy - Studies Medications List Reviewed: Yes Assessment And Plan - Current Problems (Diagnosis) (1) HTN (hypertension) Current Visit: Yes Status: Acute Plan: resume Lopressor at 50 mg po BID Continue to monitor (2) Stroke Current Visit: Yes Status: Acute Plan: per neurology team continue ASA and Plavix outpatient follow up with cardiology for possible event monitor (3) Syncope Current Visit: Yes Status: Acute Plan: unclear etiology tele shown sinus rhythm so far troponin negative x3 echo is normal patient to follow up with cardiology as outpatient
[2025-07-07] MEDS: METOPROLOL TAR 50 MG TAB PO SCH (12:27)
[2025-07-07 15:10] LABS: Anion Gap 6.8 mEq/L (5.0-15.0); BUN Blood Urea Nitrogen 6.0 mg/dL (7-18); Glucose Level 79.0 mg/dL (74-106); Potassium 3.8 mEq/L (3.5-5.1)
[2025-07-07] MEDS: LOSARTAN POTASSIUM 50 MG TABLET PO ONE (16:36)
[2025-07-08 06:46] LABS: Absolute Lymphocytes (CBC) 0.8 K/uL (0.7-4.9); Hematocrit 37.8 % (39.6-49.0); Hemoglobin 13.3 g/dL (13.6-17.9); MCH 34.2 pg (27.0-35.0); MCHC 35.2 g/dL (32.0-36.0); MCV 97.1 fL (80-100); MPV 8.1 fL (7.6-11.3); Nucleated RBC Absolute Count 0.0 (0-0); Nucleated Red Blood Cells % 0.0 % (0-0); RBC Red Blood Cell Count 3.89 M/uL (4.33-5.43); White Blood Count 5.90 thou/uL (4.3-10.9)
[2025-07-08 07:17] LABS: ALT/SGPT 31.0 U/L (16-61); AST/SGOT 28.0 U/L (15-37); Albumin 2.9 g/dL (3.4-5.0); Albumin/Globulin Ratio 0.7 (1.1-1.8); Alkaline Phosphatase 66.0 U/L (45-117); Anion Gap 9.6 mEq/L (5.0-15.0); BUN Blood Urea Nitrogen 7.0 mg/dL (7-18); Globulin 4.1 g/dL (2.3-3.5); Glucose Level 96.0 mg/dL (74-106); Magnesium 1.8 mg/dL (1.6-2.4); Potassium 3.6 mEq/L (3.5-5.1)
[2025-07-08 07:36] VITALS: O2SAT 98
--- NOTE | 2025-07-08 08:36 | RAD REPORT ---
EXAMINATION: CAROTID DUPLEX ULTRASOUND CLINICAL INDICATION: CVA, r/o stenosis TECHNIQUE: Real-time grayscale, color flow and spectral Doppler sonographic images were obtained of t he extracranial carotid system using a linear transducer. COMPARISON: No prior exam. FINDINGS: RIGHT: Common carotid artery: 62 cm/s Internal carotid artery: 49 cm/s External carotid artery: 55 cm/s Right ICA/CCA ratio: 0.8 Plaque: Mild hard plaque. Vertebral artery Antegrade LEFT: Common carotid artery: 68 cm/s Internal carotid artery: 62 cm/s External carotid artery: 62 cm/s Left ICA/CCA ratio: 0.9 Plaque: Mild hard plaque Vertebral artery Antegrade IMPRESSION: No hemodynamically significant stenosis (greater than 50%) within the extracranial internal carotid a rteries. The degrees of stenosis, if any, are quantified according to the consensus statement of the Society o f Radiologists in Ultrasound (SRUS). Please refer to Toan E, Adam C, Brigette G et al. Carotid Artery Stenosis: Monroe-Scale and Doppler US Diagnosis--Society of Radiologists in Ultrasound Consensus Conference. Radiology. 2003;229(2):340-6.
[2025-07-08] MEDS: LOSARTAN POTASSIUM 50 MG TABLET PO SCH (08:37)
[2025-07-08 08:39] VITALS: BP 143/87
[2025-07-08 08:57] VITALS: TEMP 98.4
--- NOTE | 2025-07-08 09:58 | P.PN ---
Date of Service: 07/07/25 Subjective: feeling better working with PT doesn't feel worse Physical Exam: Gen: Alert, Oriented, NAD CV: Regular rate and rhythm, no edema Pulm: Nonlabored respirations on room air, clear bilaterally Abdomen: Soft, nontender, nondistended Neuro: Normal strength, normal affect Problem List: Acute punctate right parietal cortical CVA Ataxia Syncope Hyponatremia Hypokalemia Alcohol use disorder Hypertension Acute punctate right parietal cortical CVA Ataxia MRI brain (07/05): single punctate right parietal region cortical infarct. Mild chronic small vessel ischemic changes. asa 81mg, statin, plavix Continue thiamine, folic acid Neuro consulted. f/u outpatient. continue PT Syncope Troponins negative x3. Monitor on telemetry Cardiology consulted. recommends outpatient f/u for possible event monitor Echo showed 55-60% EF, grade 1 diastolic dysfunction. Hyponatremia Hypokalemia Monitor and replete electrolytes as needed Alcohol use disorder Significant alcohol use. Drinks 12-24 beers daily Cessation advised. Monitor for alcohol withdrawals LFTs okay PRN ativan Hypertension confirm home meds, restart as appropriate VTE: Lovenox Code: Full Dispo: Home pending improvement of sodium
--- NOTE | 2025-07-08 10:00 | P.DS ---
Admission Date: 07/05/25 Discharge Date: 07/08/25 Disposition: ROUTINE DISCHARGE Discharge Condition: GOOD Reason for Admission: Ataxia Consultations: Neurology - Dr. Ayers Cardiology - Dr. Spivey Brief History of Present Illness: 60yo M, PMH: hypertension, neuropathy Patient presents the emergency department with chief complaint of nausea/vomiting, unsteady gait. He had a syncopal episode yesterday while he was outside and fell hitting the back of his head. Since he fell and hit his head he has been having a very unsteady gait and persistent vomiting. Patient was evaluated in the emergency department CT head without contrast was negative for any acute findings his labs are significant for sodium of 131 chloride 95 AST 46. Patient reports 1 other syncopal episode a few weeks ago. He denies any chest pain, shortness of breath or other symptoms prior to syncopal episodes. Both episodes happened while standing.Patient does admit to being a heavy drinker, he drinks anywhere from 12-24 beers daily. Patient with unsteady gait, unable to ambulate without assistance will be admitted for further evaluation and management. Hospital Course: Problem List: Acute punctate right parietal cortical CVA Ataxia Syncope Hyponatremia, improving Hypokalemia, improved Alcohol use disorder Hypertension Physician discharge instructions: Patient presented to ED after a syncopal episode at home. He reports hitting the back of his head when he fell and since then he has been having ataxic gait associated with persistent nausea/vomiting. Patient was found to have an acute punctate right parietal cortical CVA, confirmed on MRI imaging. MRI of the cervical spine showed mild central spinal stenosis at C6-C7, neural foraminal narrowing noted bilaterally otherwise no acute findings. No significant narrowing that would be expected to cause his symptoms. Carotid ultrasound was normal. Patient was started on aspirin, statin, and plavix in addition to thiamine and folic acid. Echo showed 55-60% EF, grade [address] Ayers recommended patient follow up in the office in the next few weeks for further management. No evidence to warrant further inpatient testing. He worked with physical therapy and had slow improvement. He was noted to be able to ambulate without assistance around the floor on day of discharge. Patient was feeling better, close to his normal self, and was deemed stable for discharge. He reports drinking anywhere from 12-24 beers a day. Recommend cessation of alcohol to reduce risk factors and decrease the chance of rehospitalization. He was noted to have hyponatremia 130 on admission)- lowest at 125, asymptomatic. Suspected to be secondary to excessive water intake. Has long standing history of drinking beer daily and during hospitalization he was drinking several pitchers of water each day. He was advised to limit water intake to 2L/ day. He had some improvement to 127 on day of discharge. Small improvement expected as he had already drank nearly 4L pitchers prior to water restriction the day before. Patient felt back to his baseline. Blood pressure improved. He was requesting discharge home. He did not display any signs of ETOH withdrawal, and plans to continue abstaining from alcohol. Given how well he is doing, the slight improvement in his sodium with water restriction, it is reasonable to discharge home today. He will continue to restrict water intake, abstain from alcohol. Return precautions given. Advised to get up slowly, waiting 20-30 seconds with position change. Medications: Aspirin 81mg indefinitely Clopidogrel (Plavix) x 21 days for prevention of stroke Atorvastatin 40mg daily with dinner/bedtime for prevention of stroke Metoprolol decreased to 50mg twice daily from 100mg losartan 50mg daily added for hypertension Follow up: PCP 3-[address] Ayers, Neurologist in 2-4 weeks Please call to schedule / confirm appointments MRI: FINDINGS: INTRACRANIAL: Punctate cortical infarct at the right parietal region. See image 60, series 5. No significant mass effect or midline shift.No hydrocephalus. Mild chronic small vessel ischemic changes.Mild cerebral atrophy. No abnormal enhancement. VASCULATURE: Normal signal voids in the larger intracranial arteries and dural venous sinuses. SINUSES: The paranasal sinuses are predominantly clear.No mastoid effusions. BONE: The marrow signal pattern is within normal limits. IMPRESSION: Single punctate right parietal region cortical infarct. Mild chronic small vessel ischemic changes. No abnormal enhancement. Physical Exam: Gen: Alert, Oriented, NAD CV: Regular rate and rhythm, no edema Pulm: Nonlabored respirations on room air, clear bilaterally Abdomen: Soft, nontender, nondistended Neuro: Normal strength, normal affect Vital Signs/Physical Exam: Temp Pulse Resp BP Pulse Ox 98.4 F 81 16 143/87 H 95 07/08/25 08:00 07/08/25 08:37 07/08/25 08:00 07/08/25 08:37 07/08/25 08:00 Laboratory Data at Discharge: WBC 5.90 thou/uL (4.3-10.9) 07/08/25 06:26 Hgb 13.3 g/dL (13.6-17.9) L 07/08/25 06:26 Hct 37.8 % (39.6-49.0) L 07/08/25 06:26 Plt Count 106 thou/uL (152-406) L 07/08/25 06:26 PT 12.2 SECONDS (10-13.0) 07/05/25 09:37 INR 1.08 07/05/25 09:37 APTT 29.6 SECONDS (27.2-37.4) 07/05/25 09:37 Sodium 127 mEq/L (136-145) L 07/08/25 06:26 Potassium 3.6 mEq/L (3.5-5.1) 07/08/25 06:26 BUN 7 mg/dL (7-18) 07/08/25 06:26 Creatinine 0.85 mg/dL (0.70-1.30) 07/08/25 06:26 Glucose 96 mg/dL (74-106) 07/08/25 06:26 Phosphorus 2.8 mg/dL (2.5-4.9) 07/08/25 06:26 Magnesium 1.8 mg/dL (1.6-2.4) 07/08/25 06:26 Total Bilirubin 1.0 mg/dL (0.2-1.0) 07/08/25 06:26 AST 28 U/L (15-37) 07/08/25 06:26 ALT 31 U/L (16-61) 07/08/25 06:26 Alkaline Phosphatase 66 U/L (45-117) 07/08/25 06:26 LDL Cholesterol Direct 72 mg/dL (100-129) L 07/06/25 05:39 Home Medications: Aspirin [Aspirin EC 81 MG] 81 mg PO DAILY 30 Days #30 tab 07/08/25 Atorvastatin Calcium [Lipitor] 40 mg PO BEDTIME 30 Days #30 tab 07/08/25 Clopidogrel Bisulfate [Plavix*] 75 mg PO DAILY 21 Days #21 tab 07/08/25 Losartan Potassium [Cozaar*] 50 mg PO DAILY 30 Days #30 tab 07/08/25 Metoprolol Tartrate [Lopressor*] 50 mg PO BID 30 Days #60 tab 07/08/25 Thiamine HCl [Vitamin B-1*] 200 mg PO DAILY 07/08/25 New Medications: Aspirin [Aspirin EC 81 MG] 81 mg PO DAILY 30 Days #30 tab Losartan Potassium [Cozaar*] 50 mg PO DAILY 30 Days #30 tab Atorvastatin Calcium [Lipitor] 40 mg PO BEDTIME 30 Days #30 tab Metoprolol Tartrate [Lopressor*] 50 mg PO BID 30 Days #60 tab Clopidogrel Bisulfate [Plavix*] 75 mg PO DAILY 21 Days #21 tab Physician Discharge Instructions: Physician discharge instructions: Patient presented to ED after a syncopal episode at home. He reports hitting the back of his head when he fell and since then he has been having ataxic gait associated with persistent nausea/vomiting. Patient was found to have an acute punctate right parietal cortical CVA, confirmed on MRI imaging. MRI of the cervical spine showed mild central spinal stenosis at C6-C7, neural foraminal narrowing noted bilaterally otherwise no acute findings. No significant narrowing that would be expected to cause his s ymptoms. Carotid ultrasound was normal. Patient was started on aspirin, statin, and plavix in addition to thiamine and folic acid. Echo showed 55-60% EF, grade 1 diastolic dysfunction. Carotid ultrasound was negative. Dr. Ayers recommended patient follow up in the office in the next few weeks for further management. No evidence to warrant further inpatient testing. He worked with physical therapy and had slow improvement. He was noted to be able to ambulate without assistance around the floor on day of discharge. Patient was feeling better, close to his normal self, and was deemed stable for discharge. He reports drinking anywhere from 12-24 beers a day. Recommend cessation of alcohol to reduce risk factors and decrease the chance of rehospitalization. He was noted to have hyponatremia 130 on admission)- lowest at 125, asymptomatic. Suspected to be secondary to excessive water intake. Has long standing history of drinking beer daily and during hospitalization he was drinking several pitchers of water each day. He was advised to limit water intake to 2L/ day. He had some improvement to 127 on day of discharge. Small improvement expected as he had already drank nearly 4L pitchers prior to water restriction the day before. Patient felt back to his baseline. Blood pressure improved. He was requesting discharge home. He did not display any signs of ETOH withdrawal, and plans to continue abstaining from alcohol. Given how well he is doing, the slight improvement in his sodium with water restriction, it is reasonable to discharge home today. He will continue to restrict water intake, abstain from alcohol. Return precautions given. Advised to get up slowly, waiting 20-30 seconds with position change. Medications: Aspirin 81mg indefinitely Clopidogrel (Plavix) x 21 days for prevention of stroke Atorvastatin 40mg daily with dinner/bedtime for prevention of stroke Metoprolol decreased to 50mg twice daily from 100mg losartan 50mg daily added for hypertension Follow up: PCP 3-[address] Ayers, Neurologist in 2-4 weeks Please call to schedule / confirm appointments MRI: FINDINGS: INTRACRANIAL: Punctate cortical infarct at the right parietal region. See image 60, series 5. No significant mass effect or midline shift.No hydrocephalus. Mild chronic small vessel ischemic changes.Mild cerebral atrophy. No abnormal enhancement. VASCULATURE: Normal signal voids in the larger intracranial arteries and dural venous sinuses. SINUSES: The paranasal sinuses are predominantly clear.No mastoid effusions. BONE: The marrow signal pattern is within normal limits. IMPRESSION: Single punctate right parietal region cortical infarct. Mild chronic small vessel ischemic changes. No abnormal enhancement. Followup: Joselin Parnell FNP [Primary Care Provider] - Time spent managing pt's care (in minutes): 45
== END 2025-07-08 11:11 | disposition home or self-care (01) | DRG 65 ==
LOC: ER 09:23 → 4TH 14:14
PROVIDERS: ADMIT Internal Medicine; ATTEND Hospitalist
DX: I63.9 Cerebral infarction, unspecified (principal); E87.1 Hypo-osmolality and hyponatremia; E87.6 Hypokalemia; I10 Essential (primary) hypertension; G62.9 Polyneuropathy, unspecified; F07.81 Postconcussional syndrome; M48.02 Spinal stenosis, cervical region; F10.20 Alcohol dependence, uncomplicated; R27.0 Ataxia, unspecified; R55 Syncope and collapse; Z88.5 Allergy status to narcotic agent; Z88.8 Allergy status to other drugs, medicaments and biological substances; Z79.899 Other long term (current) drug therapy; Z79.02 Long term (current) use of antithrombotics/antiplatelets; Z79.82 Long term (current) use of aspirin
CPT/HCPCS: 36415; 70450; 70553; 71045; 72141; 80048; 80053; 80076; 83735; 84100; 84439; 84443; 84484; 85025; 85610; 85730; 93005; 93306; 93880; 97161; 99285; A9577; J1650; J2405; J3411; J3475; J7030